=== PATIENT | male | born 1990 | race Caucasian/White ===

== ENCOUNTER 2021-04-06 20:40 | Emergency (ER) | payer SELFPAY ==
[~2021-04-06] VITALS: Ht 175.3 cm; Wt 86.2 kg
[2021-04-06 20:49] VITALS: BP 156/76
== END 2021-04-06 21:48 | disposition left against medical advice (07) ==
LOC: MED 20:40
DX: Z53.21 Procedure and treatment not carried out due to patient leaving prior to being seen by health care provider (principal)